=== PATIENT | male | born 2000 | race Caucasian/White ===

== ENCOUNTER 2024-07-14 17:40 | Day surgery (SDC) | payer OTHER, SELFPAY ==
[2024-07-14 17:41] VITALS: BP 124/100; PULSE 77; RESP 14; TEMP 36.8; O2SAT 99; BMI 22.8
--- NOTE | 2024-07-14 17:54 | EDS_ITS ---
HPI History of Present Illness HPI Narrative: 24-year-old male [id number]. Was doing elida today. He was holding something for his brother and his brother accidentally drove a nail through his right index finger mid phalanx. This occurred about an hour ago. Tetanus not up-to-date. No other complaints. Chief Complaint: Upper Extremity Injury Informant: patient and spouse/S.O. Occured/Mechanism Mechanism/Context: Yes injury Onset/Context/Timing Onset: Today Context: Sudden Onset Quality of Pain: Sharp Current Severity: Moderate Maximum Severity: Moderate Associated Symptoms Associated Symptoms: Negative for Parasthesia or Weakness Narrative Narrative: 24-year-old hyumx-ssct-koljwyvl male with a nail driven through the middle phalanx of his right index finger about an hour ago. Tetanus Immunization: Unknown (No prior tetanus shot.) Prior similar symptoms: No Recent Illness/Hospitalization: No PFSH PFSH Medical History no medical history no medical history Home Medications ?Medication ?Instructions ?Recorded ?Last Taken ?Type NK 07/14/24 Unknown History Allergy/AdvReac Type Severity Reaction Status Date / Time No Known Allergies Allergy Verified 07/14/24 17:41 Surgical History no surgical history no surgical history Social History Smoking Status: Unknown if ever smoked ROS ROS ED ROS Narrative Denies recent illness. Constitutional Constitutional ED: Denies chills or fever(s) Eyes Eyes: Denies blurry vision ENT ENT ED: Denies ear pain Cardiovascular Cardiovascular: Denies chest pain Respiratory/Chest Respiratory/Chest: Denies cough or dyspnea Gastrointestinal Gastrointestinal: Denies abdominal pain Genitourinary Genitourinary ED: Denies dysuria or hematuria Musculoskeletal Musculoskeletal: Denies back pain or myalgias Integumentary Denies abscess Neurologic Neurologic: Denies headache(s) Psychiatric Psychiatric: Denies anxiety Endocrine Endocrinology: Denies cold intolerance Hematologic/Lymphatic Hematologic/Lymphatic: Denies easy bleeding, easy bruising or lymphadenopathy Allergic/Immunologic Allergic/Immunologic ED: Denies mouth swelling, tongue swelling or urticaria EXAM Physical Exam Narrative Exam Narrative: 24-year-old male no acute distress vital signs stable afebrile. at bedside. HEENT exam normal. Lungs clear. Heart regular rate and rhythm no murmur. Rate about 75. Abdomen soft nontender. Moving all 4 extremities. Neurovascular intact. Right index finger there is a nail driven through the mid phalanx of his right index finger through the bone. Distally he has normal touch sensation and cap refill. He is able to do full extension. Const Vital Signs: 07/14/24 17:41 Temperature 98.3 F Temperature Source Temporal Pulse Rate 77 Respiratory Rate 14 Blood Pressure 124/100 H Blood Pressure Mean 108 Pulse Ox 99 Oxygen Delivery Method Room Air Positive well nourished and well developed; Negative for obese, cachectic, contractures or unkempt General Appearance ED: well developed and NAD; Negative for unkempt, cachectic, contractures, cyanotic or diaphoretic Nutritional Appearance: Negative for cachectic or obese HEENT Reports moist mucous membranes normocephalic and atraumatic; Negative for trauma or tenderness Eyes EOMs intact bilaterally Neck full ROM and supple General: Negative for tenderness Lymph Lymphatic: Negative for other Chest Wall inspection of chest normal and palpation of chest normal Chest: Negative for other Resp normal respiratory effort and clear to auscultation bilaterally Auscultation: Negative for rales, rhonchi or wheezes Cardio regular rate, regular rhythm, S2 normal heart sound and no murmurs Rhythm: Negative for abnormal rhythm GI non-tender, non-distended and no masses Inspection: Negative for abdominal distention Auscultation: normoactive bowel sounds Palpation: soft; Negative for tender, guarding or rebound tenderness present Back/Spine no CVA tenderness Extremity normal to inspection and full ROM Extremity Narrative: Except the foreign body through right index finger mid phalanx. Neurovascular intact. Neuro oriented x3, CN's II-XII intact bilaterally, moves all extremities and no focal motor deficits Sensorium / Orientation: alert, oriented to person, oriented to place and oriented to time Motor Exam: strength 5/5 throughout Psych mental status grossly normal Appearance: Negative for unkempt Attitude: No agitated Mood & Affect: Negative for depressed or anxious Skin Lesions: no lesions Rashes: no rashes MDM MDM MDM Narrative Medical decision making narrative: 24-year-old male with a nail through his right index finger. X-ray. Tetanus and tetanus immunoglobulin be updated. He has never had a vaccination that he is aware of. And then we will try to remove the nail. Reportedly it has barbs on it. Repeat exam unchanged. Ordered IV Ancef. I spoke to plastic surgeon on-call Dr. Kent. He will be in evaluate the patient. Given that it is an open fracture I discussed barbs and it is through both his extensor and flexor tendon and the nail may have glue on it patient would most appropriately be taken to the OR have this washed out and evaluation of the tendons and the bone. History & Record Review Discussion w/independent historian: Patient Radiography Diagnostic Testing: Right index finger x-ray, 2 views, interpreted by myself shows a barbed nail going through and through his right index finger middle phalanx. There is a fracture of the phalanx which would be considered an open fracture. Plus this 1 through and through the extensor and flexor tendon. Discharge Plan Triage Chief Complaint: Upper Extremity Injury ED Provider: George Shields Dx/Rx/DC Orders Clinical Impression: Open displaced fracture of phalanx of right index finger, Foreign body finger, Extensor tendon laceration, finger, open wound, Flexor tendon laceration of finger with open wound Prescriptions: No Action NK Primary Care Provider: Harvey Christopher Print Language: Pashto Disposition Disposition: Acute Care Hospital [facility]
--- NOTE | 2024-07-14 18:05 | RAD_ITS ---
STUDY: X-RAY - RIGHT HAND, ATTENTION INDEX FINGER REASON FOR EXAM: Male, 24 years old. nail vs R-index finger TECHNIQUE: 3 view(s) of the finger were obtained. COMPARISON: None. FINDINGS: The nail passes through the mid right index finger, passes directly through the middle phalanx which has a longitudinal fracture which is mildly distracted. Normal metacarpal head. Normal metacarpophalangeal joint. Normal proximal phalanx. Normal distal phalanx. Normal proximal interphalangeal joint. Normal distal interphalangeal joint. RAD/Finger(s) Min 2 Views IMPRESSION: Longitudinal fracture through the middle phalanx through which the embedded nail passes. Electronically Signed: Aníbal Petresen MD at 18:33 EDT ,
[2024-07-14] MEDS: Diphth,Pertuss(Acell),Tet Vac 0.5 ML Vial IM (18:24)
[2024-07-14 18:29] VITALS: BP 128/76; PULSE 76; RESP 14; TEMP 36.6; O2SAT 98; BMI 22.8
[2024-07-14] MEDS: Cefazolin 1 GM/50 ML BAG IV (18:45)
[2024-07-14 18:53] VITALS: BP 125/75; PULSE 78; RESP 16; TEMP 36.4; O2SAT 99
--- NOTE | 2024-07-14 19:42 | EX.PCM.CON.S ---
Assessment & Plan Assessment/Plan (1) Open displaced fracture of phalanx of right index finger: (2) Foreign body finger: PLAN: Plan Plan to explore the right index finger open fracture in the OR and washed it out and remove foreign body. I will examine the flexor and extensor tendons. Given that P2 is displaced on both articular surfaces, I will plan to take him back to the operating room at a later date for operative fixation of the fracture; however, I do not think this is prudent to do any reconstruction and night as his hand is quite dirty and the nail was quite dirty. I think he needs a thorough washout and several days of antibiotics before any foreign body can be considered for fixation of tendons or bone. I talked the patient extensively about the risks of surgery, including bleeding, infection (osteomyelitis), damage to surrounding structures, surgical site dehiscence and wound formation, need for wound care, need for repeat operations, failure to obtain the desired result, DVT/PE, and the risks of anesthesia including . All of their questions were answered, and they agreed to proceed with surgery. I counseled the patient on smoking cessation. Caprinis score is 2 HPI Consult Data Date of Consult: 07/14/24 HPI Narrative HPI Narrative: BALDO WOODSON, is a 24 M who is a zyaod-oxfx-ijfdroax otherwise healthy [facility] male who presents today for right index finger open fracture with a nail through the middle phalanx (P2). 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 Woodson's finger. He reports sharp severe pain worsened by movements and improved with rest and elevation. He has never hurt this hand before. He does not have any personal or family history of bleeding or clotting disorders. No history of problems with anesthesia personally or in his family. His tetanus is up-to-date. He received Ancef in the emergency department. [facility] Medical History no medical history Home Medications ?Medication ?Instructions ?Recorded ?Last Taken ?Type NK 07/14/24 Unknown History Allergy/AdvReac Type Severity Reaction Status Date / Time No Known Allergies Allergy Verified 07/14/24 17:41 Surgical History no surgical history Social History Smoking Status: Unknown if ever smoked Physical Exam Narrative Right upper extremity Hands are quite dirty Approximately inch and half long nail through the right long finger at the level of the middle phalanx. Motor: Exam limited secondary to swelling and pain, but patient is unable to bend his DIP joint, but can extend it and extend the finger to neutral position. Sensory: 2 mm 2-point discrimination distal to the zone of injury on the radial and ulnar borders of the right index finger. Vascular: Triphasic Doppler signal distal to the zone of injury on the radial and ulnar borders of the right index finger. Const alert and oriented x3 Eyes EOMs intact bilaterally Resp normal respiratory effort Cardio Rate: regular rate Imaging Radiology Impression Finger X-Ray 07/14/24 18:05 IMPRESSION: Longitudinal fracture through the middle phalanx through which the embedded nail passes. Electronically Signed: Aníbal Petersen MD at 18:33 EDT , I reviewed the x-ray as well The fracture is displaced with intra-articular prominence on the PIP and the DIP joint surfaces.
[2024-07-14 19:52] VITALS: BP 125/75; PULSE 78; RESP 16; TEMP 36.4; O2SAT 99
--- NOTE | 2024-07-14 19:52 | OP.PCM_ITS ---
Problems Associated Problem List Diagnoses (1) Open displaced fracture of phalanx of right index finger: Operative Report Date of Procedure: 07/14/24 Surgery/Procedure Date: 14 July 2024 Incision/Procedure Start Time: 20:30 Incision Close/Procedure End Time: 21:31 (1 hour 1 minute) PATIENT: Aaron Woodson SURGEON: Sj Kent MD PRE-OPERATIVE DIAGNOSIS: Open fracture right index finger, middle phalanx (P2) with foreign body (nail) POST-OPERATIVE DIAGNOSIS: Same PROCEDURE PERFORMED: 1) Washout open fracture right index finger middle phalanx with removal of foreign body, CPT: 10205 2) Exploration penetrating right upper extremity trauma, CPT: 54661 3) Open treatment/reduction of middle phalangeal shaft fracture, right index finger, without internal fixation, CPT: 79960 4) Simple closure 2 cm, CPT: 98623 OPERATIVE FINDINGS: * Nail was removed without a significant amount of effort; however, there were 2 pieces of lucita steel that were within the open fracture site that were removed after the wound was opened and explored. The removal was confirmed with C arm imaging and these 3 pieces were sent to pathology in a specimen cup for gross identification. * Limited damage to the flexor tendon (flexor tendon greater than 90% intact) with some damage to the A2 cherry, but again most of A2 cherry intact. 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 He has an open fracture of the middle phalanx and there is a nail stuck through it. He presents today for removal of the foreign body and washout of the open fracture. OPERATIVE DETAILS: Patient was correctly identified in preoperative holding and marked. He was taken back to the operating room where he was administered a local block with 5 cc of 0.25% Marcaine and 5 cc of 1% lidocaine. A turnicot was applied. His hand was washed extensively with chlorhexidine soap and peroxide, and then he was prepped and draped in sterile fashion with Betadine. The metal nail was removed with a needle route sales delivery drivers supervisor with care taken to stabilize the finger and not displace the fracture further. It was sent to pathology. The patient was then asked to bend and extend his finger. He was able to hyperextend his finger past the neutral position confirming that the terminal slip of the extensor mechanism was intact. He was also able to bend his distal interphalangeal joint and his proximal interphalangeal joint without limitations. We then turned our attention to exploring the wound and washing out the open fracture. The volar wound was converted into an oblique West incision and the flexor tendon was identified and noted to be almost completely intact with small area of fraying secondary to the trauma. The A2 cherry was obviously violated, but there were proximal and distal A2 extensions that appear to be intact. The volar wound was then irrigated with 1 L of normal saline with care taken to irrigate the flexor tendon tendon/sheath at the base of the wound. 100 cc of Irrisept was also used The dorsal wound was then converted into an axial incision to explore the dorsal injury and we noted that most of the extensor mechanism was intact, and the fibers contributing mostly to the terminal slip for radial and ulnar to the zone of injury. The open fracture component was then explored and irrigated with copious amounts normal saline (2 L) as well as 400 cc of Irrisept. We were able to identify 2 pieces of lucita metal that were lodged within the open fracture which were removed and sent to pathology along with the nail. The fracture was then reduced manually and through stabilization of the soft tissue. The C arm was then used to confirm that the metal was removed and to confirm an adequate reduction. There was no other foreign body noted. The turnicot was removed. Hemostasis was obtained with bipolar electrocautery. The wound was then closed with 3-0 nylon interrupted sutures (2 cm simple closure). Xeroform over the incisions and a dorsal blocking splint was applied (radial gutter). The patient was taken to the PACU in stable condition and discharged home. The finger was warm well-perfused. EBL: 5 cc Anesthesia: Local ASA: 1 IVF: None UOP: None Intraoperative Ancef, 2 g POST-OPERATIVE PLAN: Patient will be discharged on Augmentin. He was given strict return precautions. I talked to the patient about management of the fracture. We discussed close follow-up on Thursday, 19 July 2024, at the [facility] for wound check and x-ray imaging. I told him that he does not need any tendon reconstruction. His fracture currently appears well reduced and if it is stable on imaging on Myrna, I think it could likely be managed with serial splinting/casting. I also told him that rigid fixation would get him moving sooner and may be back to work sooner; however, he is not interested in hardware placement unless it is completely necessary and would like to, if possible, manage this problem without further operations. I think this is reasonable and I will see him on 19 July 2024 in clinic.
--- NOTE | 2024-07-14 19:52 | PRE.ANES_ITS ---
ASA Classification* ASA Classification ASA Classification: 2 and E Assessment & Plan Anesthesia* Anesthesia Assessment Anesthesia Assessment: Discussed sedation and/or anesthesia options, risks, benefits, and alternatives with patient/parents/legal guardian/POA. Questions invited. The patient/parents/legal guardian/POA seems to understand and agrees to proceed with anesthesia plan. Reviewed the physical assessment, medical history, allergy history and patient home medications list prior to surgery/procedure/anesthetic and documented any changes. Performed airway and anesthesia risk assessments. 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 When Was Last Pacemaker Check QUESTION #4 FULL TEXT: You/Your Family Experience fever (hyperthermia) with Anesthesia Last Oral Intake Last Oral intake: Last Oral Intake NPO since 14:00 07/14/24 18:29 Meds taken in AM with sips of water? Meds patient instructed to take am of surgery PONV PONV - aircraft ordnance systems mechanic: PONV - aircraft ordnance systems mechanic Female HX of Motion Sickness HX of N/V After Surgery Non-Smoker Duration of Surgery greater than 60 minutes Number of Risk Factors PONV Score Height & Weight Height & Weight: Anesthesia: Height & Weight Height 5 ft 7 in 07/14/24 18:29 Weight: 66.2 kg 07/14/24 18:29 Body Mass Index (BMI) 22.8 07/14/24 18:29 Respiratory Assessment Respiratory Assessment - aircraft ordnance systems mechanic: Respiratory Tract Infection Hx - aircraft ordnance systems mechanic Hx Respiratory Tract Infection STOP Sleep Apnea STOP Sleep Apnea - aircraft ordnance systems mechanic: STOP Sleep Apnea - aircraft ordnance systems mechanic Hx Hypertension No 10/10/24 18:29 Hx Sleep Apnea No 07/14/24 18:29 CPAP BIPAP Do you snore loudly (louder No 07/14/24 18:29 than talking or can be heard Do you often feel tired/ No 07/14/24 18:29 fatigued/ sleepy during daytime? Has anyone observed you stop No 07/14/24 18:29 breathing during sleep? STOP Results Negative 07/14/24 18:29 QUESTION #5 FULL TEXT : Do you snore loudly (louder than talking or can be heard through closed doors)? 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 Specify any problems Hx of Preganancy in last 3 Months Nurse Filling Out Transfusion & Questions: Date: Time: Patient unable to answer at this time (ie. confused, unrespo /Reproduction History /Reproductive History - aircraft ordnance systems mechanic: /Reproductive Hx- aircraft ordnance systems mechanic Hx Now No 07/14/24 18:29 Gestational Age (in weeks): EDC: Hx Hx Para Hx Section SAB PFSH Medical History no medical history Home Medications ?Medication ?Instructions ?Recorded ?Last Taken ?Type NK 07/14/24 Unknown History Allergy/AdvReac Type Severity Reaction Status Date / Time No Known Allergies Allergy Verified 07/14/24 17:41 Surgical History no surgical history Social History Smoking Status: Unknown if ever smoked Review of Systems (Anesthesia) ROS Narrative System reviewed and no additional complaints, except as documented.
[2024-07-14] MEDS: Lactated Ringers 1,000 ML 15 ML IV (19:58)
--- NOTE | 2024-07-14 20:00 | FORE_PTH ---
PATIENT: BALDO SEO LOC: [facility] [place] U#:[id number] AGE/SX: 24/M ROOM: RE07/14/[address]: Dr. Sj Kent MD : 2000 BED: DIS: 07/14/2024 SPEC #: [id number] RECD: 07/15/24 10:16 STATUS: CATHRYN MIRDavid #: [id number] CRYSTAL: 07/14/24 20:[address]: Sj Kent DEPT: SURGICAL PATHOLOGY RECD BY: Chelsea Saini ENTERED: 07/15/24 10:16 SP TYPE: FOREIGN B JU DR: Dr. Harvey Christopher, DO Tissues: FOREIGN BODY Procedures: Surgery Specimen Level I HEADER OPERATION: Debridement wound right index finger, removal of foreign body PRE-OP DIAGNOSIS: Open displacement fracture of phalanx of right index finger, foreign body finger, extensor tendon laceration of phalanx finger, open wound TISSUE SUBMITTED: Foreign body right hand, nail GROSS DIAGNOSIS Foreign bodies of finger, removal: Unremarkable elida nail and two pin/staple fragments(gross diagnosis only). . 07/18/2024 COMMENT The metallic nail and the two metallic staple fragments have magnetic properties. GROSS DESCRIPTION Received fresh and labeled with the patient's name is a specimen designated Foreign body- right hand. The specimen consists of a elida metallic nail measuring 4.0cm in length, the nail has a head diameter of 9.0mm and a shaft diameter of 0.3mm. No skin or soft tissue is attached to the nail. Also present in the specimen container are two metallic wires/staple pieces. Each piece measures 0.9cm in length and <0.1cm in average diameter. AM. 07/18/2024 CPT:74069
[2024-07-14 20:27] VITALS: BP 117/70; BP 124/79; O2SAT 100
[2024-07-14] MEDS: Bupivacaine 0.25% 30 ML Vial (20:30)
[2024-07-14] MEDS: Lidocaine 1% (20 ml mdv) 20 ML Vial (20:30)
--- NOTE | 2024-07-14 21:15 | RAD_ITS ---
STUDY: X-RAY - RIGHT HAND, ATTENTION SECOND FINGER REASON FOR EXAM: Male, 24 years old. FOREIGN BODY REMOVAL TECHNIQUE: 6 C-arm view(s) of the finger were obtained. 11 seconds fluoroscopy time COMPARISON: None. FINDINGS: These images were obtained after the removal of a nail through the second middle phalanx. No residual foreign bodies. Possible fracture of the tibial phalanx is in anatomic alignment and position. Correlate with procedure note. Electronically Signed: Aníbal Petersen MD at 23:55 EDT , RAD/Finger(s) Min 2 Views IMPRESSION: undefined
[2024-07-14] MEDS: Cefazolin 2 GM in Syringe IV (21:32)
[2024-07-14 21:40] VITALS: BP 118/75; PULSE 70; RESP 16; TEMP 36.8; O2SAT 100
== END 2024-07-14 22:24 | disposition home or self-care (01) ==
LOC: ED 19:35 → SDC 19:39 → AC 19:39
PROVIDERS: Emergency Provider Emergency Medicine; PCP Family Medicine; Referring Provider Surgery Plastic and Reconstructive Surgery; Visit Provider Surgery Plastic and Reconstructive Surgery
PROC: (CPT 11010; principal; 2024-07-14 19:45)
DX: S62.620B Displaced fracture of middle phalanx of right index finger, initial encounter for open fracture (principal); S66.129A Laceration of flexor muscle, fascia and tendon of unspecified finger at wrist and hand level, initial encounter; S60.450A Superficial foreign body of right index finger, initial encounter; W45.0XXA Nail entering through skin, initial encounter
CPT/HCPCS: 11010; 20103; 26735; 01830; 73140; 76000; 88300; 90715; 99282; J1670; J7120; A4216

== ENCOUNTER 2024-07-19 11:54 | Outpatient (RCR) | payer SELFPAY, OTHER ==
--- NOTE | 2024-07-19 13:43 | HP.OTEVAL_ITS ---
Patient's Visit Information Visit Information Visit Information: BALDO WOODSON is a 24 year old M, referred to Occupational Therapy by Dr. Sj Kent MD, with a diagnosis of right IF open displaced fx with tendon. Date of Evaluation: 07/19/24 Occupational Therapist: Faby Orantes, OTR/Yessi, CHT Subjective Subjective: This 24 year old male was seen for OT eval with dx of a right index finger open fracture with a nail through the middle phalanx (P2). DOI was on 07/14/24. 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 Woodson's finger. pt went to ER and had the nail removed- arrives to office today. Dr. Kent wanted to cast pt, but pt did not want hand in cast- Dr. Kent ed. pt on risk of fx moving - and pt agreed to allow removable orthosis. 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 ROM ROM Comments: will test later date when fx is stable Quick DASH-Disab of Arm,Shoulder& Hand Quick DASH Score: 46.6650 Goals Goal:ROM equal to unaffected hand: Yes Comment: will initiate once fx healing Goal:Ceramics Machine Operator/Pinch strength at least 75% of unaffected hand: Yes Comment: will not initiate until week 6-8 or indicates otherwise Goal:No pain with affected hand use: Yes Goal:Full use of affected hand in daily activities including work: Yes Other Goal: orthosis use: pt will demo IND doffing/donning of orthosis by end of 1st session. pt will demo understanding of use and precautions of orthosis by end of 1st visit. Rehabilitation General Assessment: Pt arrives 5 days s/p from DOI- pt demo healing structures on both volar and dorsal sides of IF P2 region. Removal of foreign body from finger. Due to newly healing structures pt demo need skilled OT service to fabricate orthosis for protection and support to allow fx to heal. Today therapist fabricated custom orthosis, ed. pt in use and watching for signs of infection- therapist advised to remove orthosis to wash hand and let air out as to not allow incisions to get to wet/ or stay wet. pt demo understanding. Pt advised no lift push or pull with hand. pt demo understanding. pt to return as needed for smaller orthosis/ ROM as Dr. Kent indicates. Rehabilitation Potential: Good Anticipated Interventions Anticipated Interventions: Wound Care, Orthoses, Education re Diagnosis and Home Program Visit Plan TEXT: Thank you for the opportunity to evaluate your patient. For Medicare and Medicare HMO plans, please review the plan of care and approve it. It will need to be FAXED BACK to us at [phone] for Medicare purposes. Please let me know if there are questions or concerns regarding this plan of care. Physician Signature: Date:
--- NOTE | 2024-12-14 13:49 | HP.OT.NRP ---
Patient Information Patient Information: BALDO SEO was seen in my office for initial evaluation on 07/19/24. The following Plan of Care was established for this patient: Anticipated Interventions Anticipated Interventions: Wound Care, Orthoses, Education re Diagnosis and Home Program Last Seen Last Seen: This patient was last seen in our office 07/19/24. Pertinent comments regarding their Occupational therapy will appear below: pt was seen for eval only. Due to time lapse in services pt is d/c at this time. At this point I will be discontinuing this patient from occupational therapy. I would be happy to see this patient again in the future if found appropriate by the physician. Thank you! Faby Orantes, OTR/L, CHT
== END 2024-07-19 19:00 | disposition home or self-care (01) ==
LOC: OT 11:54
PROVIDERS: PCP Family Medicine; Referring Provider Surgery Plastic and Reconstructive Surgery; Visit Provider Surgery Plastic and Reconstructive Surgery
DX: S56.129D Laceration of flexor muscle, fascia and tendon of unspecified finger at forearm level, subsequent encounter (principal); S61.209D Unspecified open wound of unspecified finger without damage to nail, subsequent encounter; S56.429D Laceration of extensor muscle, fascia and tendon of unspecified finger at forearm level, subsequent encounter; S60.459D Superficial foreign body of unspecified finger, subsequent encounter; S62.600B Fracture of unspecified phalanx of right index finger, initial encounter for open fracture
CPT/HCPCS: 97165; 97760

== ENCOUNTER → 2024-09-08 | Outpatient (CLI) | payer OTHER, SELFPAY ==
--- NOTE | 2024-09-08 15:28 | RAD_ITS ---
EXAM: XR RIGHT FINGERS, 2 OR MORE VIEWS CLINICAL INDICATION: index finger TECHNIQUE: Frontal, lateral and oblique views of the fingers of the right hand. COMPARISON: 07/19/2024 FINDINGS: BONES/JOINTS: See below. SOFT TISSUES: Was a small rounded lucency with a tiny metallic foreign bodies seen within the midportion of the middle second phalanx. This is unchanged from the reference exam and may be from previous puncture wound. There are no fractures identified. No soft tissue swelling or gas. RAD/Finger(s) Min 2 Views IMPRESSION: Persistent lucency in the middle second phalanx which may be from previous puncture wound. There is no fracture on today''s exam. Electronically Signed: Brant Monteiro MD at 23:58 EST ,
== END | disposition home or self-care (01) ==
PROVIDERS: PCP Family Medicine; Referring Provider Surgery Plastic and Reconstructive Surgery; Visit Provider Surgery Plastic and Reconstructive Surgery
DX: S56.129A Laceration of flexor muscle, fascia and tendon of unspecified finger at forearm level, initial encounter (principal); S61.209A Unspecified open wound of unspecified finger without damage to nail, initial encounter; S56.429A Laceration of extensor muscle, fascia and tendon of unspecified finger at forearm level, initial encounter
CPT/HCPCS: 73140